=== PATIENT | female | born 1955 | race African-American/Black ===

== ENCOUNTER 2017-06-08 13:50 | Emergency (ER) | payer OTHER ==
[~2017-06-08] VITALS: Ht 162.6 cm; Wt 86.0 kg
[~2017-06-08 13:50] MED LIST: BANOPHEN PO; PROT40 PO; QUET50TA PO
[2017-06-08] MEDS ORDERED: KETOROLAC 60MG/2ML VIAL IM ONE (16:30)
[2017-06-08 18:07] VITALS: BP 121/46
== END 2017-06-08 18:18 | disposition home or self-care (01) ==
LOC: ER 16:13
DX: M25.762 Osteophyte, left knee (principal); I10 Essential (primary) hypertension; Z98.890 Other specified postprocedural states; Z88.8 Allergy status to other drugs, medicaments and biological substances
CPT/HCPCS: 73562; 96372; 99284; J1885; Z7610

== ENCOUNTER 2017-09-27 12:08 | Emergency (ER) | payer MEDICAID, OTHER ==
[~2017-09-27] VITALS: Ht 162.6 cm; Wt 84.0 kg
[2017-09-27 12:16] VITALS: BP 138/101
== END 2017-09-27 13:31 | disposition home or self-care (01) ==
LOC: ER 12:57
DX: G89.29 Other chronic pain (principal); M25.562 Pain in left knee; M25.561 Pain in right knee; I10 Essential (primary) hypertension; F41.9 Anxiety disorder, unspecified; F12.10 Cannabis abuse, uncomplicated; Z88.8 Allergy status to other drugs, medicaments and biological substances
CPT/HCPCS: 99281

== ENCOUNTER 2019-01-06 13:05 | Emergency (ER) | payer MEDICAID, OTHER ==
[~2019-01-06] VITALS: Ht 167.6 cm; Wt 75.0 kg
[~2019-01-06 13:05] MED LIST changes: -BANOPHEN PO
[2019-01-06] MEDS ORDERED: LISI10TA5 PO (13:16)
[2019-01-06] MEDS ORDERED: DIAZ2TAB3 PO (13:16)
[2019-01-06] MEDS ORDERED: TRAM150C25 PO (13:16)
[2019-01-06] MEDS ORDERED: SODIUM CHLORIDE 0.9% 1,000 ML IV ONE (14:15)
[2019-01-06 14:30] LABS: BASOPHILS % 0.7 % (0.0-2.0); EOSINOPHILS % 2.9 % (0.0-5.0); HEMATOCRIT. 38.6 % (36.0-48.0); HEMOGLOBIN. 12.5 g/dL (12.0-16.0); MEAN CORPUSCULAR HEMOGLOBIN 27.9 pg (28.0-32.0); MEAN CORPUSCULAR VOLUME 85.9 fL (81.0-99.0); MEAN PLATELET VOLUME 9.4 fl (7.4-10.4); MONOCYTES % 7.4 % (2.0-8.0); PLATELET 144 x1000/uL (130-400); RED CELL DISTRIBUTION WIDTH 15.2 % (11.6-14.6)
[2019-01-06 14:41] LABS: CHLORIDE 105 mEq/L (98-107)
[2019-01-06 15:45] LABS: CLARITY URINE CLEAR (CLEAR); COLOR URINE YELLOW (YELLOW); KETONES URINE NEGATIVE (NEGATIVE); LEUKOCYTE ESTERASE URINE NEGATIVE (NEGATIVE); NITRITE URINE NEGATIVE (NEGATIVE); OCCULT BLOOD URINE NEGATIVE (NEGATIVE); PH URINE 7.5 (4.5-8.0); PROTEIN URINE NEGATIVE (NEGATIVE); SPECIFIC GRAVITY URINE 1.006 (1.005-1.030); UROBILINOGEN URINE 0.2 E.U./dL (0.2-1.0)
[2019-01-06] MEDS ORDERED: KETOROLAC 15MG/ML VIAL IV ONE (16:00)
[2019-01-06 18:15] VITALS: BP 152/107
== END 2019-01-06 18:26 | disposition home or self-care (01) ==
LOC: ER 13:05
DX: R55 Syncope and collapse (principal); G89.29 Other chronic pain; M25.562 Pain in left knee; M25.561 Pain in right knee; F41.9 Anxiety disorder, unspecified; I10 Essential (primary) hypertension; Z88.8 Allergy status to other drugs, medicaments and biological substances
CPT/HCPCS: 36415; 71045; 80053; 81003; 83880; 84484; 85025; 93005; 96361; 96374; 99284; J1885; J7030

== ENCOUNTER 2019-03-22 12:00 | Inpatient (IN) | payer OTHER ==
[~2019-03-22] VITALS: Ht 162.6 cm; Wt 86.2 kg
[~2019-03-22 12:00] MED LIST changes: +DIAZ2TAB3 PO; +LISI10TA5 PO; +TRAM150C25 PO
[2019-03-22] MEDS ORDERED: MORPHINE SULFATE 4 MG/ML CPJ (NOT FOR IM USE) IV STA (12:22)
[2019-03-22] MEDS ORDERED: SODIUM CHLORIDE 0.9% 1,000 ML IV ONE (12:22)
[2019-03-22] MEDS ORDERED: ONDANSETRON HCL 4MG/2ML INJ IV STA (12:22)
[2019-03-22 13:09] LABS: BASOPHILS % 0.4 % (0.0-2.0); EOSINOPHILS % 0.1 % (0.0-5.0); HEMATOCRIT. 50.2 % (36.0-48.0); HEMOGLOBIN. 16.3 g/dL (12.0-16.0); LYMPHOCYTES % 9.4 % (20.0-50.0); MEAN CORPUSCULAR HEMOGLOBIN 28.1 pg (28.0-32.0); MEAN CORPUSCULAR VOLUME 86.5 fL (81.0-99.0); MEAN PLATELET VOLUME 9.6 fl (7.4-10.4); MONOCYTES % 3.5 % (2.0-8.0); NEUTROPHILS % 86.6 % (40.0-76.0); PLATELET 248 x1000/uL (130-400); RED BLOOD CELL COUNT 5.81 mill/uL (4.2-5.4); RED CELL DISTRIBUTION WIDTH 15.4 % (11.6-14.6)
[2019-03-22 13:15] LABS: CHLORIDE 99 mEq/L (98-107)
[2019-03-22] MEDS ORDERED: DIPHENHYDRAMINE 50MG/ML VIAL IV PRN (14:15)
[2019-03-22] MEDS ORDERED: ACETAMINOPHEN 325MG TABLET PO PRN (14:15)
[2019-03-22] MEDS ORDERED: GUAIFENESIN 200MG/10ML SUGAR FREE UDC PO PRN (14:15)
[2019-03-22] MEDS ORDERED: DOCUSATE SODIUM 100MG CAPSULE PO PRN (14:15)
[2019-03-22] MEDS ORDERED: IPRATROPIUM/ALBUTEROL 0.5-3(2.5)MG/3ML NEB INH PRN (14:15)
[2019-03-22] MEDS ORDERED: ALBUTEROL (0.083%) 2.5MG/3ML NEB HHN NR (14:45)
[2019-03-22] MEDS ORDERED: DEXTROSE 50% WATER 50ML SYRINGE IV NR (15:45)
[2019-03-22] MEDS ORDERED: INSULIN REGULAR (HUMULIN R) 300UNITS/3ML IV NR (15:45)
[2019-03-22 16:46] VITALS: BP 142/97
[2019-03-22 16:50] VITALS: BP 142/97
[2019-03-22] MEDS: SODIUM CHLORIDE 0.9% 1,000 ML IV SCH (17:45)
[2019-03-22] MEDS: HYDROMORPHONE HCL/PF 2MG/ML CPJ IV PRN ×2 (18:09→21:27)
[2019-03-22] MEDS ORDERED: DEXTROSE 50% WATER 50ML SYRINGE IV PRN (18:45)
[2019-03-22 21:00] VITALS: BP 153/99
[2019-03-22] MEDS: INSULIN LISPRO 100 UNITS/ML SUBCUT SCH (21:00)
[2019-03-22] MEDS: BLOOD SUGAR DIAGNOSTIC STRIP TEST SCH (21:36)
[2019-03-22 23:26] LABS: PHOSPHORUS 3.3 mg/dL (2.5-4.9)
[2019-03-23] VITALS: BP 137/92
[2019-03-23 04:00] VITALS: BP 143/83
[2019-03-23] MEDS: SODIUM CHLORIDE 0.9% 1,000 ML IV SCH (04:35)
[2019-03-23 06:59] LABS: BASOPHILS % 0.2 % (0.0-2.0); EOSINOPHILS % 0.7 % (0.0-5.0); HEMATOCRIT. 40.4 % (36.0-48.0); HEMOGLOBIN. 13.3 g/dL (12.0-16.0); LYMPHOCYTES % 17.6 % (20.0-50.0); MEAN CORPUSCULAR HEMOGLOBIN 28.4 pg (28.0-32.0); MEAN CORPUSCULAR VOLUME 86.5 fL (81.0-99.0); MEAN PLATELET VOLUME 9.7 fl (7.4-10.4); MONOCYTES % 7.6 % (2.0-8.0); NEUTROPHILS % 73.9 % (40.0-76.0); PLATELET 182 x1000/uL (130-400); RED BLOOD CELL COUNT 4.67 mill/uL (4.2-5.4); RED CELL DISTRIBUTION WIDTH 15.5 % (11.6-14.6)
[2019-03-23] MEDS: HYDROMORPHONE HCL/PF 2MG/ML CPJ IV PRN ×2 (07:00→17:02)
[2019-03-23] MEDS: INSULIN LISPRO 100 UNITS/ML SUBCUT SCH ×3 (07:15→17:15)
[2019-03-23] MEDS: BLOOD SUGAR DIAGNOSTIC STRIP TEST SCH ×3 (07:28→16:45)
[2019-03-23 07:32] LABS: CHLORIDE 106 mEq/L (98-107)
[2019-03-23 07:43] LABS: CREATINE KINASE MB FRACTION 2.7 ng/mL (0.5-3.6)
[2019-03-23 07:44] LABS: CREATINE KINASE 128 IU/L (26-192); LDL CHOLESTEROL 103 mg/dL (5-100)
[2019-03-23 07:45] LABS: HDL CHOLESTEROL 56 mg/dL (40-59)
[2019-03-23 08:55] VITALS: BP 127/71
[2019-03-23] MEDS ORDERED: DEXT 5%/0.45% NACL 1000ML 1,000 ML IV SCH (10:00)
[2019-03-23] MEDS: ONDANSETRON HCL 4MG/2ML INJ IV PRN ×2 (12:04→19:30)
[2019-03-23 12:12] VITALS: BP 151/92
[2019-03-23 16:58] VITALS: BP 140/86
[2019-03-23 17:09] VITALS: BP 140/86
== END 2019-03-23 19:37 | disposition short-term general hospital (02) | DRG 247 ==
LOC: ER 12:00 → 5WST 14:08 → ENRESERV 15:19
PROVIDERS: ADMIT Internal Medicine; ATTEND Internal Medicine
DX: K56.699 Other intestinal obstruction unspecified as to partial versus complete obstruction (principal); N17.9 Acute kidney failure, unspecified; E83.52 Hypercalcemia; E87.5 Hyperkalemia; K43.2 Incisional hernia without obstruction or gangrene; D72.829 Elevated white blood cell count, unspecified; F17.200 Nicotine dependence, unspecified, uncomplicated; R73.9 Hyperglycemia, unspecified; I10 Essential (primary) hypertension; R74.0 Nonspecific elevation of levels of transaminase and lactic acid dehydrogenase [LDH]; Z79.899 Other long term (current) drug therapy; Z88.8 Allergy status to other drugs, medicaments and biological substances
CPT/HCPCS: 36415; 74018; 74176; 80061; 80076; 82550; 82553; 82962; 83036; 83735; 84100; 84443; 93970; 94640; 96374; 96375; 99285; J1170; J1815; J2270; J2405; J7030; J7611

== ENCOUNTER 2020-10-05 08:31 | Inpatient (IN) | payer MEDICARE, MEDICAID ==
[~2020-10-05] VITALS: Ht 162.6 cm; Wt 74.4 kg
[~2020-10-05 08:31] MED LIST changes: +AMLO10TA80 PO; +AMLO5TAB88 PO; +BACL20TA PO; -DIAZ2TAB3 PO; +DIPH25TA23 PO; +IBUP-2030 PO; -LISI10TA5 PO; +LURA60TA PO; +OMEP40CA12 PO; -PROT40 PO; +QUET300T19 PO; -QUET50TA PO; +SERT-112 PO; -TRAM150C25 PO
[2020-10-05] MEDS ORDERED: KETOROLAC 30MG/ML VIAL IV ONE (08:45)
[2020-10-05] MEDS ORDERED: ONDANSETRON HCL 4MG/2ML INJ IV ONE (08:45)
[2020-10-05 09:19] LABS: BASOPHILS % 0.6 % (0.0-2.0); EOSINOPHILS % 0.7 % (0.0-5.0); HEMATOCRIT. 41.8 % (36.0-48.0); HEMOGLOBIN. 13.8 g/dL (12.0-16.0); LYMPHOCYTES % 12.7 % (20.0-50.0); MEAN CORPUSCULAR HEMOGLOBIN 28.5 pg (28.0-32.0); MEAN CORPUSCULAR VOLUME 86.2 fL (81.0-99.0); MEAN PLATELET VOLUME 10.3 fl (7.4-10.4); MONOCYTES % 6.4 % (2.0-8.0); NEUTROPHILS % 79.6 % (40.0-76.0); PLATELET 199 x1000/uL (130-400); RED BLOOD CELL COUNT 4.85 mill/uL (4.2-5.4); RED CELL DISTRIBUTION WIDTH 14.9 % (11.6-14.6)
[2020-10-05 09:29] LABS: CHLORIDE 104 mEq/L (98-107)
[2020-10-05] MEDS ORDERED: IOHEXOL-350 100 ML BOTTLE ONE (11:20)
[2020-10-05] MEDS ORDERED: ONDANSETRON HCL 4MG/2ML INJ IV PRN (16:00)
[2020-10-05] MEDS ORDERED: IPRATROPIUM/ALBUTEROL 0.5-3(2.5)MG/3ML NEB HHN PRN (16:00)
[2020-10-05] MEDS ORDERED: CLONIDINE 0.1MG TABLET PO PRN (16:00)
[2020-10-05] MEDS ORDERED: DIPHENHYDRAMINE 50MG/ML VIAL IV PRN (16:00)
[2020-10-05] MEDS: MORPHINE SULFATE 2 MG/ML CPJ (NOT FOR IM USE) IV PRN (16:49)
[2020-10-05] MEDS: ENOXAPARIN 40MG/0.4ML SYR SUBCUT SCH (16:50)
[2020-10-06] VITALS: BP 157/87
[2020-10-06] MEDS: MORPHINE SULFATE 2 MG/ML CPJ (NOT FOR IM USE) IV PRN ×3 (01:23→20:31)
[2020-10-06 04:01] VITALS: BP 119/75
[2020-10-06 08:00] VITALS: BP 122/33
[2020-10-06 08:19] LABS: BASOPHILS % 0.4 % (0.0-2.0); HEMATOCRIT. 38.1 % (36.0-48.0); HEMOGLOBIN. 12.5 g/dL (12.0-16.0); LYMPHOCYTES % 26.8 % (20.0-50.0); MEAN CORPUSCULAR HEMOGLOBIN 28.5 pg (28.0-32.0); MEAN CORPUSCULAR VOLUME 86.6 fL (81.0-99.0); MEAN PLATELET VOLUME 10.2 fl (7.4-10.4); MONOCYTES % 12.1 % (2.0-8.0); NEUTROPHILS % 55.7 % (40.0-76.0); PLATELET 158 x1000/uL (130-400); RED CELL DISTRIBUTION WIDTH 14.5 % (11.6-14.6)
[2020-10-06 08:54] LABS: CHLORIDE 104 mEq/L (98-107)
[2020-10-06 09:06] LABS: HDL CHOLESTEROL 63 mg/dL (40-59); LDL CHOLESTEROL 113 mg/dL (5-100)
[2020-10-06] MEDS ORDERED: REGADENOSON 0.4 MG/5 ML IV ONE ×2 (10:45→14:50)
[2020-10-06 12:00] VITALS: BP 156/90
[2020-10-06] MEDS ORDERED: POTASSIUM CHLORIDE 20MEQ TABLET SR PO NR (12:00)
[2020-10-06 16:00] VITALS: BP 117/70
[2020-10-06] MEDS: ENOXAPARIN 40MG/0.4ML SYR SUBCUT SCH (19:24)
[2020-10-06 20:00] VITALS: BP 144/69
[2020-10-07] VITALS: BP 124/78
[2020-10-07 04:00] VITALS: BP 156/78
[2020-10-07 07:28] LABS: BASOPHILS % 0.6 % (0.0-2.0); HEMATOCRIT. 38.1 % (36.0-48.0); HEMOGLOBIN. 12.6 g/dL (12.0-16.0); LYMPHOCYTES % 32.5 % (20.0-50.0); MEAN CORPUSCULAR HEMOGLOBIN 28.7 pg (28.0-32.0); MONOCYTES % 13.6 % (2.0-8.0); NEUTROPHILS % 45.3 % (40.0-76.0); PLATELET 145 x1000/uL (130-400); RED BLOOD CELL COUNT 4.39 mill/uL (4.2-5.4); RED CELL DISTRIBUTION WIDTH 14.3 % (11.6-14.6)
[2020-10-07 07:29] LABS: CHLORIDE 105 mEq/L (98-107)
[2020-10-07 08:00] VITALS: BP 123/84
[2020-10-07 12:00] VITALS: BP 148/82
[2020-10-07 12:46] VITALS: BP 148/82
== END 2020-10-07 14:07 | disposition home or self-care (01) | DRG 206 ==
LOC: ER 08:49 → 3WST 13:10 → ENRESERV 22:28
PROVIDERS: ADMIT Internal Medicine; ATTEND Internal Medicine
DX: M94.0 Chondrocostal junction syndrome [Tietze] (principal); I50.32 Chronic diastolic (congestive) heart failure; E11.9 Type 2 diabetes mellitus without complications; E78.5 Hyperlipidemia, unspecified; E87.6 Hypokalemia; F12.90 Cannabis use, unspecified, uncomplicated; I11.0 Hypertensive heart disease with heart failure; M19.90 Unspecified osteoarthritis, unspecified site; Z82.49 Family history of ischemic heart disease and other diseases of the circulatory system; Z83.3 Family history of diabetes mellitus; Z88.8 Allergy status to other drugs, medicaments and biological substances; Z79.899 Other long term (current) drug therapy; Z20.822 Contact with and (suspected) exposure to COVID-19
CPT/HCPCS: 36415; 71045; 71275; 78452; 80048; 80053; 80061; 82962; 83735; 83880; 84443; 84484; 85025; 87426; 93017; 93970; 99285; A9500; J1650; J1885; J2270; J2405; J2785; J7070; Q9967

== ENCOUNTER 2023-01-22 10:08 | Emergency (ER) | payer MEDICARE, MEDICAID ==
[~2023-01-22] VITALS: Ht 162.6 cm; Wt 65.0 kg
[~2023-01-22 10:08] MED LIST changes: -OMEP40CA12 PO; +OMEP40CA20 PO; -QUET300T19 PO; +QUET300T20 PO
[2023-01-22] MEDS ORDERED: DOCU-286 MT (12:35)
[2023-01-22] MEDS ORDERED: HYDR25SU37 RC (12:35)
[2023-01-22] MEDS ORDERED: KETOROLAC 60MG/2ML VIAL IM ONE (12:45)
[2023-01-22 13:00] VITALS: BP 134/59
== END 2023-01-22 13:05 | disposition home or self-care (01) ==
LOC: ER 10:08
DX: K64.9 Unspecified hemorrhoids (principal); I25.2 Old myocardial infarction; I10 Essential (primary) hypertension; E11.9 Type 2 diabetes mellitus without complications
CPT/HCPCS: 96372; 99283; J1885

== ENCOUNTER 2025-06-03 10:44 | Emergency (ER) | payer MEDICAID, MEDICARE ==
[~2025-06-03] VITALS: Ht 167.6 cm; Wt 66.0 kg
[~2025-06-03 10:44] MED LIST changes: +DOCU-286 MT; +HYDR25SU37 RC
[2025-06-03 10:55] VITALS: O2SAT 99
[2025-06-03] MEDS ORDERED: NAPR-681 MT (13:47)
[2025-06-03] MEDS ORDERED: LIDO-53 TP (13:47)
[2025-06-03] MEDS: IBUPROFEN 400MG TABLET PO ONE (14:08)
[2025-06-03] MEDS: LIDOCAINE 5% PATCH TOP SCH (14:09)
[2025-06-03 14:18] VITALS: BP 136/69; PULSE 67; RESP 19; TEMP 36.6; O2SAT 99
== END 2025-06-03 14:24 | disposition home or self-care (01) ==
LOC: ER 10:44
DX: M25.512 Pain in left shoulder (principal); E11.9 Type 2 diabetes mellitus without complications; I10 Essential (primary) hypertension; Z79.899 Other long term (current) drug therapy
CPT/HCPCS: 73030; 73060; 73090; 99283; 99284